=== PATIENT | female | born 1935 | race Caucasian/White ===

== ENCOUNTER 2022-05-30 07:39 | Emergency (ER) | payer MEDICARE, BC, SELFPAY ==
--- NOTE | ~2022-05-30 | CT_ITS ---
EXAMINATION: CT abdomen pelvis w con DATE: 05/30/2022 09:29 INDICATION: Lower abdominal pain TECHNIQUE: Computed tomography (CT) of the abdomen and pelvis was performed with 100 mL Omnipaque-300 intravenous contrast. Automated exposure control and iterative reconstruction technique were employe d. The dose-length product was 324.45 mGy-cm. COMPARISON: None FINDINGS: Mild peripheral reticular opacities at the bilateral lung bases which could represent atelectasis or more chronic mild interstitial lung disease. 6 mm subtle solid right middle lobe nodule along the dimas or fissure. Heart size is normal. No pericardial or pleural effusion. Dual lead cardiac pacemaker wit h leads in the right atrium and right ventricle. Small sliding-type hiatal hernia. Focal hepatic stea tosis at the ligamentum teres. Cholecystectomy clips at the gallbladder fossa. Numerous splenic calci fic lesions consistent with old granulomatous disease. Pancreas, bilateral adrenal glands and kidneys are normal. Decompressed bladder is unremarkable. The uterus is not identified and has likely been s urgically resected. Moderate scattered diverticulosis with descending and sigmoid colon predominance and without adjacent inflammatory stranding to suggest diverticulitis. No bowel obstruction. No free intraperitoneal gas or fluid. No pathologically enlarged abdominal or pelvic lymphadenopathy. Severe lumbar spondylosis. Chronic appearing L1 burst fracture with 20% anterior vertebral body height loss and minimal retropulsion. IMPRESSION: 1. Moderate diverticulosis. 2. Small sliding-type hiatal hernia. Reviewed, dictated and finalized at location A.
[2022-05-30 07:45] VITALS: BP 184/76; PULSE 75; RESP 17; TEMP 36.6; O2SAT 100
--- NOTE | 2022-05-30 07:55 | ED.GENADULT ---
HPI - General Adult General Chief complaint: Vaginal Bleeding Stated complaint: vaginal bleeding Time Seen by Provider: 05/30/22 07:43 Source: RN notes reviewed History of Present Illness HPI narrative: Patient presents emergency department from home for vaginal bleeding. Patient states she had episode of vaginal bleeding at the beginning of April and states that lasted several days and resolved she was able to see Dr. Perkins her [employer] last Friday states she had had no bleeding since April and had no bleeding when she was seen her. At that time she was told the bleeding was secondary to thin skin in the vaginal region patient states that starting yesterday she began to have bright red vaginal bleeding again states that is present with wiping. She denies having blood in her urine she states she does notice some mild lower abdominal cramping she denies any fevers or chills dizziness or weakness. Patient states she does take blood thinners and is on Xarelto for history of blood clots. Patient states she has had a history of hysterectomy Related Data Home Medications Medication Instructions Recorded Confirmed alprazolam 0.5 mg tablet 0.5 mg PO DAILY 05/24/22 chlordiazepoxide-clidinium 5 1 cap PO BID 05/24/22 mg-2.5 mg capsule (Librax (with clidinium)) clonidine HCl 0.1 mg tablet 0.1 mg PO DAILY 05/24/22 losartan 50 mg tablet 50 mg PO DAILY 05/24/22 metoprolol tartrate 100 mg tablet 100 mg PO BID 05/24/22 pantoprazole 20 mg tablet,delayed 20 mg PO QAM 05/24/22 release rivaroxaban 20 mg tablet (Xarelto) 20 mg PO DAILY 05/24/22 Allergies Allergy/AdvReac Type Severity Reaction Status Date / Time cefdinir Allergy Severe Diarrhea Verified 05/24/22 10:16 nitrofurantoin Allergy Severe Diarrhea Verified 05/24/22 10:16 ciprofloxacin Allergy Intermediate Diarrhea Verified 05/24/22 10:16 meperidine Allergy Intermediate rapid Verified 05/24/22 10:14 heart beat Review of Systems Review of Systems: Gen.: Denies fevers or chills ENT: Denies congestion Respiratory: Denies shortness of breath or cough CV: Denies chest pain or palpitations GI: Reports lower abdominal cramping, denies nausea, emesis or diarrhea see HPI Musculoskeletal: Denies back pain or muscle pain Neuro: Denies numbness, tingling, weakness or focal weakness Skin: Denies rash Except as documented, all other systems reviewed and negative [facility] Past Medical History Medical History Cardiac pacemaker in situ Cataract GERD (gastroesophageal reflux disease) Herpes History of hypertension IBS (irritable bowel syndrome) Postherpetic neuralgia Vascular disease Vitamin D deficiency Surgical History Surgical History (Updated 05/24/22 @ 10:22 by GIRISH Pacheco) H/O: hysterectomy History of tonsillectomy Hx of cholecystectomy S/P medial meniscus repair of right knee S/P spinal surgery Family History Family History Father Malignant neoplasm of prostate Mother CHF (congestive heart failure) Cerebrovascular accident Heart disease Hypertension Son Cerebrovascular accident Social History Social History Smoking status: Never smoker Alcohol intake: never Substance use: never Substance use type: does not use Additional living arrangements comments: Gender identity (if verbalized by the patient): Female Sexual Orientation (if Verbalized by the Patient): Straight or Heterosexual Exam Narrative: APPEARANCE: No acute distress, nontoxic, resting in bed EYES: EOMI HEENT: Normocephalic, atraumatic, OMM RESPIRATORY: No respiratory distress Clear to auscultation bilaterally with no rhonchi wheezing or rales. CARDIOVASCULAR: Regular rate and rhythm without murmurs rubs or gallops. ABDOMINAL: Soft, nontender, nondistended, no rebound or guarding : Normal
[2022-05-30 08:13] LABS: Basophils Percent Auto 0.3 % (0.2-1.2); Eosinophils Absolute Auto 0.1 K/mm3 (0-0.3); Eosinophils Percent Auto 1.9 % (0-4.4); Hematocrit 42.6 % (37.0-47.0); Hemoglobin 14.7 g/dL (12.0-15.0); Immature Granulocyte Absolute 0.02 K/mm3 (0.00-0.031); Immature Granulocyte Percent A 0.3 % (0-0.5); Lymphocytes Percent Auto 15.2 % (18.3-44.2); Mean Corpuscular HGB Conc 34.5 g/dl (32-36); Mean Corpuscular Hemoglobin 31.7 pg (26-34); Mean Platelet Volume 11.5 fl (7.4-10.4); Monocytes Absolute Auto 0.4 K/mm3 (0.1-0.6); Neutrophils Absolute Auto 5.5 K/mm3 (1.3-6.7); Neutrophils Percent Auto 76.3 % (45.5-73.1); Platelet Count Result 233 k/mm3 (150-375); Red Blood Count 4.63 M/mm3 (4.2-5.4); White Blood Count 7.2 K/mm3 (4.5-10.0)
[2022-05-30 08:24] LABS: Alanine Aminotransferase 18 U/L (6-35); Albumin Level 4.3 g/dL (3.5-5.1); Alkaline Phosphatase 78 U/L (38-126); Anion Gap 9 mmol/L (8-16); Aspartate Amino Transferase 25 U/L (14-36); Bilirubin,Total 2.2 mg/dL (0.2-1.3); Blood Urea Nitrogen 16 mg/dL (7-17); Calcium 8.5 mg/dL (8.4-10.2); Carbon Dioxide 28 mmol/L (22-30); Chloride 101 mmol/L (98-107); Estimated CRCL calculation 34 ml/min; Estimated Glomerular Filt Rate 47; Glucose 123 mg/dL (65-110); Potassium 3.5 mmol/L (3.4-5.0); Sodium 138 mmol/L (137-145)
[2022-05-30 08:36] LABS: INR 2.2; Prothrombin Time 23.2 Seconds (11.1-14.7)
[2022-05-30 08:37] LABS: Partial Thromboplastin Time 34.2 SECONDS (22.3-36.8)
[2022-05-30 08:53] LABS: Appearance Urine Cloudy (Clear); Bilirubin Urine Negative (Negative); Blood Urine Trace-lysed (Negative); Color Urine Yellow (Yellow); Glucose Urine UA Negative (Negative); Ketones Urine Negative (Negative); Leukocyte Esterase Ur 3+ LEU/UL (Negative); Nitrate Urine Negative (Negative); Protein Urine Negative (Negative); Specific Grav Ur <= 1.005 (1.001-1.035); Urobilinogen Urine 0.2 mg/dL (<2.0)
[2022-05-30 09:02] LABS: Bacteria Urine Trace /hpf; Mucus Urine Rare /lpf; Squamous Epithelial Cell Urine Rare /hpf (Few); WBC Urine >75 /hpf
[2022-05-30 09:06] LABS: Add Urine Microscopic? YES
[2022-05-30 09:07] VITALS: BP 157/74; PULSE 73; RESP 18; O2SAT 99
[2022-05-30 11:44] VITALS: BP 149/86; PULSE 86; RESP 16; O2SAT 98
== END 2022-05-30 11:45 | disposition home or self-care (01) ==
PROVIDERS: Emergency Provider Emergency Medicine; PCP Internal Medicine
DX: N39.0 Urinary tract infection, site not specified (principal); R31.9 Hematuria, unspecified; I10 Essential (primary) hypertension; K21.9 Gastro-esophageal reflux disease without esophagitis; K58.9 Irritable bowel syndrome, unspecified; I99.9 Unspecified disorder of circulatory system; Z95.0 Presence of cardiac pacemaker; K44.9 Diaphragmatic hernia without obstruction or gangrene; Z90.710 Acquired absence of both cervix and uterus; Z79.01 Long term (current) use of anticoagulants
CPT/HCPCS: 36415; 51701; 74177; 80053; 81001; 85025; 85610; 85730; 87077; 87086; 87186; 99284; Q9967